=== PATIENT | male | born 1975 | race Caucasian/White ===

== ENCOUNTER 2018-12-09 22:08 | Inpatient (IN) | payer MEDICAID, SELFPAY ==
[2018-12-09] VITALS (7 sets, daily range): BP systolic 126–214; BP diastolic 67–107; PULSE 106–112; RESP 14–27; TEMP 35.8–36.8; O2SAT 79–99; BMI 31.2
--- NOTE | 2018-12-09 22:10 | ED.RN ---
RN CALLED FOR EKG, NO OLD EKGS IN MUSE
--- NOTE | 2018-12-09 22:14 | EKG12_ITS ---
Test Reason : SOB Blood Pressure : / mmHG Vent. Rate : 111 BPM Atrial Rate : 111 BPM P-R Int : 140 ms QRS Dur : 078 ms QT Int : 346 ms P-R-T Axes : 074 019 066 degrees QTc Int : 470 ms Sinus tachycardia Nonspecific ST abnormality Abnormal ECG Confirmed by LAURYN ZAMBRANO, FINN ([id number]), assignment desk editor DEL NAM ([id number]) on 12/12/2018 11:01:28 AM Referred By: Confirmed By:FINN COMBS MD
--- NOTE | 2018-12-09 22:16 | CT_ITS ---
STUDY: CTA CHEST REASON FOR EXAM: Male, 43 years old. Short of breath RADIATION DOSAGE (If Supplied By Facility): CTDIvol = ( 14.52 ) mGy, DLP = ( 489.13 ) mGycm TECHNIQUE: The examination was performed with the intravenous administration of Isovue 370 100ML IV. Post-processing of the angiographic images was performed, with multiplanar reformation and 3D reconstruction. Individualized dose optimization techniques were used for this CT. COMPARISON: None. FINDINGS: There are diffuse groundglass pulmonary infiltrates with scattered areas of mild subsegmental atelectasis. There is minimal consolidation. There is Mild prominence of the pulmonary vascularity. There is mild peribronchial wall thickening. There is significant respiratory motion artifact. Normal enhancement of the main pulmonary artery and right and left pulmonary arteries. Evaluation of the more distal peripheral vessels is limited due to significant respiratory motion. Normal thoracic aorta and visualized great vessels. There is distention of the stomach. There is no demonstrated aortic dissection. Normal heart and pericardium. Normal mediastinum. Normal hilar regions. . Normal pleura. Normal chest wall structures. Normal osseous structures. Normal visualized upper abdomen. There is a small hiatal hernia. CT/CTA Chest W/WO Contrast IMPRESSION: Significant bilateral groundglass pulmonary infiltrates and scattered areas of subsegmental atelectasis, mild consolidation likely diffuse pneumonia. Pulmonary venous congestion cannot be excluded No CTA evidence for pulmonary emboli within the main pulmonary arteries evaluation of the more distal pulmonary arteries is limited due to significant respiratory motion artifact Small hiatal hernia Distended stomach Electronically Signed: Kiran Cardozo, at 23:32 EDT Tel , Service support ,
--- NOTE | 2018-12-09 22:20 | RAD_ITS ---
STUDY: X-RAY CHEST REASON FOR EXAM: Male, 43 years old. Short of breath TECHNIQUE: Portable chest COMPARISON: None. FINDINGS: There are bilateral pulmonary infiltrates. There are bilateral nipple rings. There is no demonstrated pleural abnormality. Normal size heart. Normal mediastinum and natasha. Normal visualized pulmonary arteries. Normal visualized aortic arch and descending thoracic aorta. Normal visualized thoracic spine. Normal visualized ribs, clavicles, and shoulders. There is no demonstrated abnormality of the visualized soft tissue structures of the upper abdomen. RAD/Chest 1 View (Portable) IMPRESSION: Bilateral pulmonary infiltrates likely infectious/inflammatory, pneumonia less likely pulmonary venous congestion Bilateral nipple rings, Electronically Signed: Kiran Cardozo, at 22:51 EDT Tel , Service support ,
[2018-12-09] MEDS: Albuterol 2.5 MG/3 ML VIAL.NEB. INHALATION ×2 (22:31→22:34)
[2018-12-09] MEDS: Ipratropium/Albuterol Sulfate 3 ML AMPUL.NEB INHALATION (22:34)
[2018-12-09 22:51] LABS: Absolute Lymphocyte Count 7.93 X10^3/ul (0.83-4.51); Absolute Neutrophil Count 4.6 X10^3/uL (2.0-7.7); Basophil# 0.05 X10^3/uL; Basophil% 0.3 % (0-1); Eosinophil# 0.28 X10^3/uL; Eosinophils% 1.9 % (0-5); Hematocrit 44.1 % (40-54); Hemoglobin 13.7 g/dl (13.0-16.5); Lymphocyte # 7.93 X10^3/ul (4.0); Lymphocyte % 54.6 % (19-41); Mean Corp Hgb Conc 31.1 g/gl (32-36); Mean Corpuscular Hgb 31.4 pg (27.0-32.0); Mean Corpuscular Volume 101.1 fL (80-94); Mean Platelet Vol. 11.2 fl (6.2-12.0); Monocyte# 1.68 X10^3/uL; Monocyte% 11.6 % (0-10); Neutrophil # 4.57 X10^3/uL (2.7-7.7); Neutrophil % 31.5 % (47-70); Platelet Count 303 K/mm3 (150-450); RBC Distribution Width CV 14.4 % (11.6-14.6); RBC Distribution Width SD 52.8 fl (35.1-43.9); Red Blood Count 4.36 M/mm3 (4.6-6.2); White Blood Count 14.5 K/mm3 (4.4-11.0)
[2018-12-09] MEDS: MethylPREDNISolone 125 MG/2 ML Vial IV (22:51)
[2018-12-09 22:52] LABS: Anion Gap 12 (5-15); BUN 16 mg/dL (7-18); BUN/Creat Ratio 16.3 RATIO (10-20); Calcium,Total 8.9 mg/dL (8.5-10.1); Chloride 105 mmol/L (98-107); Creatinine, Serum 0.98 mg/dL (0.70-1.30); EST Glomerular Filtration Rate 88 mL/min (>60); Est Glom Filt Rate - Afr Amer 107 mL/min (>60); Estimated Creatinine Clearance 97.19 ml/min; Glucose 150 mg/dL (74-106); Potassium 3.4 mmol/L (3.5-5.1); Sodium Level 142 mmol/L (136-145)
--- NOTE | 2018-12-09 22:52 | ED.DCSUM_ITS ---
- ER Visit Summary Date of Service: 12/09/18 Chief Complaint: Shortness of breath History of Present Illness: The patient is a 43 M presenting with shortness of breath. Severe shortness of breath started tonight. He states he was helping his sister with getting groceries out of the car. He became acutely very short of breath. He was diaphoretic. He denies chest pain or chest pressure. He has had a cough and wheezing for several weeks. He recently quit smoking. He denies medical problems. He had a hernia surgery approximately 1 month ago. On arrival pulse ox was in the 70s. Physical Examination: Blood pressure 214/107, heart rate 106, respiratory rate 19. Patient is afebrile. Alert moderate distress. 96% on nonrebreather HEENT exam is unremarkable. Pharynx is normal. No tongue swelling or pharyngeal edema. Neck is supple. Lungs are wheezing and diminished bilaterally. Retractions Heart is regular and tachycardic Abdomen is soft nontender nondistended. Extremities are unremarkable. Skin is diaphoretic. No rash No focal neurologic deficit. Remainder of exam is unremarkable. Emergency Department Course and Treatment: EKG is sinus tachycardia rate of 111 with no acute ischemic changes. Patient was given Solu-Medrol, albuterol, Atrovent aerosols. He is feeling improved and was weaned to nasal cannula. Chest xray shows bilateral pulmonary infiltrates likely infectious/inflammatory, pneumonia less likely pulmonary venous congestion. CTA chest shows significant bilateral groundglass pulmonary infiltrates and scattered areas of subsegmental atelectasis, mild consolidation likely diffuse pneumonia. Pulmonary venous congestion cannot be excluded. No CTA evidence for pulmonary emboli within the main pulmonary arteries evaluation of the more distal pulmonary arteries is limited due to significant respiratory motion artifact. Blood cultures were sent. He was given IV fluids, Rocephin, Zithromax. CBC shows white count of 14.5. Chemistries unremarkable other than potassium 3.4, glucose 150. Troponin is negative. Lactic acid 6.9. Patient's repeat blood pressure is 131/62. He is feeling much improved on reevaluation. Will discuss with the hospitalist for admission. Disposition: Admission Impression: Septic shock, community acquired pneumonia This note was generated with [employer] dictation software. It may contain incorrect words, spelling, and punctuation that were not noted in review of the chart prior to signing ED Disposition - Plan for ED Patient: Referrals: Care Physician,No Primary [Primary Care Provider] -
[2018-12-09 22:53] LABS: Differential Indicated SCAN CRITERIA MET; POSITIVE COUNT NO; POSITIVE DIFFERENTIAL YES; POSITIVE MORPHOLOGY NO
[2018-12-09 23:09] LABS: Lactic Acid 6.9 mmol/L (0.4-2.0)
[2018-12-09 23:16] LABS: Differential Comment SCANNED
[2018-12-09] MEDS: 0.9% Normal Saline 1,000 ML 999 ML IV ×2 (23:52)
[2018-12-09 23:55] LABS: Blood Gas Specimen Type VEN; O2 Delivery Device Nasal Can; SITE OTHER; VBG BASE EXCESS 2 mmol/L (-1.0-3.5); VBG Bicarbonate 27 mmol/L (22-26); VBG Oxygen Content 28 mmol/L (23-33); VBG PO2 37 mmHg (25-40); VBG SO2 70 % (50-70); VBG pCO2 43.3 mmHg (41-51); VBG pH 7.41 (7.32-7.42)
[2018-12-10] VITALS (28 sets, daily range): BP systolic 105–153; BP diastolic 48–88; PULSE 72–99; RESP 12–22; TEMP 36.1–37.2; O2SAT 92–100; BMI 31.2
[2018-12-10] MEDS: Ceftriaxone 1 GM/50 ML BAG IV ×2 (00:22→08:27)
[2018-12-10 00:34] LABS: BNP,B-Type NATRIURETIC PEPTIDE 61.7 pg/mL (0-100)
--- NOTE | 2018-12-10 00:50 | HP.PCM_ITS ---
Problem List (1) Septic shock Status: Acute (2) Community acquired pneumonia Status: Acute History of Present Illness Date of Admission: 12/10/18 Chief Complaint: SHORTNESS OF BREATH The patient is a 43 year old M with a significant history of tobacco abuse who presented with sudden onset of shortness of breath while helping her sister to pack groceries. Her symptoms started on the same day of presentation. Reportedly his oxygen saturation was in the 70s at the emergency department and he was diaphoretic. Emergency department doctor reported an initial blood pressure of about 214/107 but this improved to 130/62. At emergency department patient received aerosols and was placed on a nonrebreather mask. Patient has been wheezing for some time. He has a productive cough; some voice changes and sore throat that he attributes to smoking. He denies any chills or fever. At emergency department patient was found to have leukocytosis with white count of 14.5. His lactic acid was severely elevated at 6.9. His BNP was not remarkable. His chest x-ray showed bilateral pulmonary infiltrates. CTPA showed significant bilateral groundglass pulmonary infiltrates and scattered areas of subsegmental atelectasis. There was no evidence of pulmonary emboli in the main pulmonary arteries. Importantly patient had hernia surgery 6 weeks ago but it was same day surgery. Past Medical History Medical History: Medical History (Last Updated 12/10/18 @ 06:34 by Kleber Jung MD) Tobacco abuse Z72.0 Allergies No Known Allergies Allergy (Verified 12/09/18 22:15) Home Medications: Ambulatory Orders Medication Instructions Recorded NK 12/09/18 Surgical History: herniorrhaphy Lives: With Family Smoking Status: Current every day smoker Tobacco Use: Cigars Alcohol: None - *Family History Maternal History Items: Cancer - Stomach cancer Paternal History Items: Heart Disease - His father had a pacemaker Review of Systems Constitutional: Denies: Chills, Fever, Weight Change HEENT: Denies: Head Aches, Sinus Congestion, Sinus Drainage Cardiovascular: Denies: Chest Pain, Palpitations Respiratory: Reports: Cough, Shortness of Breath, Sputum production, Wheezing Gastrointestinal: Denies: Abdominal Pain, Nausea, Vomiting Genitourinary: Denies: Dysuria Musculoskeletal: Denies: Joint Pain, Joint Tenderness Skin: Denies: Rash, Wounds Neurological: Denies: Numbness, Tingling, Focal weakness Psychiatric: Denies: Anxiety, Depression, Homicidal Ideations, Suicidal Ideations Hematologic/ Lymphatic: Denies: Easy Bruising, Easy Bleeding VTE Information - Inpt Only VTE Present on Admission: No VTE Pharm Prophylaxis ordered?: Yes Patient Problems: Active and Suspected Problems Septic shock (Acute) Community acquired pneumonia (Acute) - Physical Exam General: Alert, Oriented x3, Cooperative HEENT: Atraumatic, PERRLA, EOMI, Normocephalic Neck: Supple, No JVD, Negative Carotid Bruits Lungs: Rales - Left base, Wheezes - Localized at right upper lung field. Cardiovascular: Regular rate, No murmurs Abdomen: Bowel Sounds Present, Soft, Non Tender Extremities: No edema, Capillary Refill Less than 3 Seconds Skin: No rashes, No breakdown Musculoskeletal: No Tenderness to Palpation of Joints or Extremities Neurological: Neuro grossly intact Psych/Mental Status: Normal Affect, Appropriate Vital Signs Temp Pulse Resp BP Pulse Ox 98.4 F 96 16 131/62 H 98 12/10/18 00:04 12/10/18 00:04 12/10/18 00:04 12/10/18 00:04 12/10/18 00:04 Oxygen Flow Rate (L/min) 5 Oxygen Delivery Method Nasal Cannula Weight: 96.1 kg Body Mass Index (BMI) 31.2 Laboratory Tests Past 24 Hrs 12/09/18 12/09/18 12/09/18 22:13 22:13 22:20 WBC 14.5 H RBC 4.36 L Hgb 13.7 Hct 44.1 MCV 101.1 H MCH 31.4 MCHC 31.1 L RDW 14.4 RDW Differential 52.8 H Plt Count 303 MPV 11.2 Immature Gran % (Auto) 0.100 Neut % (Auto) 31.5 L Lymph % (Auto) 54.6 H [place] % (Auto) 11.6 H Eos % (Auto) 1.9 Baso % (Auto) 0.3 Absolute Neuts (auto) 4.6 Absolute Lymphs (auto) 7.93 H Total Counted Not Reportable Differential Comment SCANNED Specimen Type Sample Site VBG pH VBG pO2 VBG O2 Sat (Calc) VBG O2 Content VBG Base Excess POC Mix VBG pCO2 Pt Tmp O2 Delivery Device Liter Flow Blood Gas Notified Whom Sodium 142 Potassium 3.4 L Chloride 105 Carbon Dioxide 25.0 Anion Gap 12 BUN 16 Creatinine 0.98 Estim Creat Clear Calc 97.19 Est GFR (MDRD) Af Amer 107 Est GFR (MDRD) Non-Af 88 BUN/Creatinine Ratio 16.3 Glucose 150 H Lactic Acid 6.9 H* Calcium 8.9 Troponin I < 0.015 B-Natriuretic Peptide 12/09/18 12/10/18 23:49 00:00 WBC RBC Hgb Hct MCV MCH MCHC RDW RDW Differential Plt Count MPV Immature Gran % (Auto) Neut % (Auto) Lymph % (Auto) [place] % (Auto) Eos % (Auto) Baso % (Auto) Absolute Neuts (auto) Absolute Lymphs (auto) Total Counted Differential Comment Specimen Type SOSA Sample Site OTHER VBG pH 7.41 VBG pO2 37 VBG O2 Sat (Calc) 70 VBG O2 Content 28 VBG Base Excess 2 POC Mix VBG pCO2 Pt Tmp 43.3 O2 Delivery Device Nasal Can Liter Flow 3.0 Blood Gas Notified Whom ED MD Sodium Potassium Chloride Carbon Dioxide Anion Gap BUN Creatinine Estim Creat Clear Calc Est GFR (MDRD) Af Amer Est GFR (MDRD) Non-Af BUN/Creatinine Ratio Glucose Lactic Acid Calcium Troponin I B-Natriuretic Peptide 61.7 Assessment/Plan All Active Problems Septic shock (Acute) Community acquired pneumonia (Acute) The patient is a 43 year old M with a significant history of tobacco abuse and who recently had a hernia operation now with sudden onset of shortness of breath; tachycardia; tachypnea; lactic acidosis; leukocytosis and radiographic evidence of bilateral infiltrates consistent with septic shock secondary to likely committee acquired pneumonia. Septic shock Likely second to committee acquired pneumonia. Patient met SIRS criteria with leukocytosis of more than 12; tachypnea; heart rate of more than 90; and with radiographic evidence of bilateral pulmonary infiltrates with a normal BNP. At the emergency department blood cultures were taken and patient received normal saline Received normal saline bolus per sepsis protocol. Because of mild hypokalemia we will continue patient on maintenance normal saline with IV potassium supplementation. Trend lactic acid Because of the severity of her condition end of because of wheezing patient was previously admitted at emergency department. We will continue patient on prednisone. Received ceftriaxone 1 g in the emergency department. Also received azithromycin IV. Will give an additional dose of ceftriaxone 1 g and then 2 g ceftriaxone every 24 hours. Azithromycin IV continued Legionella urine antigen; and strep pneumoniae antigen ordered. Sputum culture ordered. Scheduled DuoNeb. Albuterol prn ordered. We will get a comprehensive respiratory pathogen panel. CBC and BMP Hypokalemia Mild with potassium of 3.4 on presentation Received IV normal saline with potassium supplementation. Trend BMP. Tobacco abuse Patient smokes cigar Counseled Nicotine patch ordered DVT prophylaxis Subcutaneous Lovenox Code Visit Inpatient E&M: 63253 Init Hosp L3
[2018-12-10] MEDS: 0.9% Normal Saline 1,000 ML 999 ML IV (02:09)
[2018-12-10 02:33] LABS: Reflex Lactate? Y
[2018-12-10 03:59] LABS: Lactic Acid 1.1 mmol/L (0.4-2.0)
[2018-12-10] MEDS: Potassium Chloride 40 MEQ in 0.9% Normal Saline 1,000 ML 75 MEQ IV (04:17)
[2018-12-10 04:40] LABS: Hematocrit 36.1 % (40-54); Hemoglobin 11.7 g/dl (13.0-16.5); Mean Corp Hgb Conc 32.4 g/gl (32-36); Mean Corpuscular Hgb 32.2 pg (27.0-32.0); Mean Corpuscular Volume 99.4 fL (80-94); Mean Platelet Vol. 11.4 fl (6.2-12.0); Platelet Count 270 K/mm3 (150-450); RBC Distribution Width CV 14.3 % (11.6-14.6); RBC Distribution Width SD 50.2 fl (35.1-43.9); Red Blood Count 3.63 M/mm3 (4.6-6.2); White Blood Count 12.4 K/mm3 (4.4-11.0)
[2018-12-10 04:52] LABS: Scan Indicated on CBC? Y/N NO
[2018-12-10 05:16] LABS: Anion Gap 9 (5-15); BUN 15 mg/dL (7-18); BUN/Creat Ratio 19.6 RATIO (10-20); Calcium,Total 7.3 mg/dL (8.5-10.1); Chloride 114 mmol/L (98-107); Creatinine, Serum 0.76 mg/dL (0.70-1.30); EST Glomerular Filtration Rate 118 mL/min (>60); Est Glom Filt Rate - Afr Amer 143 mL/min (>60); Estimated Creatinine Clearance 125.33 ml/min; Glucose 174 mg/dL (74-106); Sodium Level 144 mmol/L (136-145)
[2018-12-10] MEDS: Ipratropium/Albuterol Sulfate 3 ML AMPUL.NEB INHALATION ×4 (07:05→23:15)
--- NOTE | 2018-12-10 09:59 | PCM.PN.HOSP ---
Patient Problems: Active and Suspected Problems (Last Updated 12/10/18 @ 06:34 by Kleber Jung MD) Septic shock (Acute) Community acquired pneumonia (Acute) Subjective: Patient seen and examined. He was admitted with a complaint of sudden onset shortness of breath was found to be hypoxic in the 70s on admission. Lactic acid was also elevated at 6.[address] showed bilateral pulmonary infiltrates but no PE. He was also noted to have markedly elevated blood pressure of 214/107 on admission. White cell count was also elevated so he was admitted and managed for septic shock due to pneumonia. However, patient was not hypotensive and so he had SIRS criteria and elevated lactic acid which qualified him for severe sepsis. He is on IV ceftriaxone and azithromycin. Patient seen and examined this morning. He had no complaints and felt well. He still had a mild cough but had improved significantly. He denied any chest pain or palpitations, dizziness, abdominal pain, diarrhea vomiting. Review of systems otherwise negative. Labs and vitals reviewed. Vitals/I&O's: Vital Signs Temp Pulse Resp BP Pulse Ox 97.4 F L 86 18 105/52 L 100 12/10/18 05:00 12/10/18 07:05 12/10/18 07:05 12/10/18 06:00 12/10/18 07:05 Oxygen Flow Rate (L/min) 3 Oxygen Delivery Method Nasal Cannula Weight: 211 lb 6.773 oz Body Mass Index (BMI) 31.2 Intake and Output for Last 24 Hours 12/08/18 12/09/18 12/10/18 23:59 23:59 23:59 Intake Total 689 / 689 Output Total 950 / 950 Balance -261 / -261 General: Alert, Oriented x3, Cooperative, No apparent distress HEENT: Atraumatic, PERRLA, EOMI, Normocephalic Oral: Moist Mucosa Neck: Supple, No JVD, Negative Carotid Bruits Lungs: Clear to auscultation, Normal air movement, No rhonchi, No wheeze, No rales Cardiovascular: Regular rate, Regular Rhythm, Normal S1, Normal S2, No murmurs Abdomen: Bowel Sounds Present, Soft, Non Tender, Non-Distended, No Hepato-splenomegaly Extremities: No clubbing, No cyanosis, No edema, Capillary Refill Less than 3 Seconds Skin: No rashes, No breakdown Musculoskeletal: No Tenderness to Palpation of Joints or Extremities Lymphatic: No Cervical, Supraclavicular, or Inguinal Adenopathy Neurological: Cranial nerves II-XII grossly intact, Motor Exam 5/5 strength throughout Psych/Mental Status: Normal Affect, Appropriate, Alert and oriented to time, place, person, mood and affect Microbiology Past 72 Hours 12/10/18 08:09 Urine, Random Streptococcus pneumoniae Antigen (M - Final 12/10/18 08:09 Urine, Clean Catch Legionella Antigen - Final Laboratory Results 12/09/18 22:13: WBC 14.5 H, RBC 4.36 L, Hgb 13.7, Hct 44.1, MCV 101.1 H, MCH 31.4, MCHC 31.1 L, RDW 14.4, RDW Differential 52.8 H, Plt Count 303, MPV 11.2, Immature Gran % (Auto) 0.100, Neut % (Auto) 31.5 L, Lymph % (Auto) 54.6 H, [place] % (Auto) 11.6 H, Eos % (Auto) 1.9, Baso % (Auto) 0.3, Absolute Neuts (auto) 4.6, Absolute Lymphs (auto) 7.93 H, Total Counted Not Reportable, Differential Comment SCANNED 12/09/18 22:13: Sodium 142, Potassium 3.4 L, Chloride 105, Carbon Dioxide 25.0, Anion Gap 12, BUN 16, Creatinine 0.98, Estim Creat Clear Calc 97.19, Est GFR (MDRD) Af Amer 107, Est GFR (MDRD) Non-Af 88, BUN/Creatinine Ratio 16.3, Glucose 150 H, Calcium 8.9, Troponin I < 0.015 12/09/18 22:20: Lactic Acid 6.9 H* 12/09/18 23:49: Specimen Type SOSA, Sample Site OTHER, VBG pH 7.41, VBG pO2 37, VBG O2 Sat (Calc) 70, VBG O2 Content 28, VBG Base Excess 2, POC Mix VBG pCO2 Pt Tmp 43.3, O2 Delivery Device Nasal Can, Liter Flow 3.0, Blood Gas Notified Whom ED 12/10/18 00:00: B-Natriuretic Peptide 61.7 12/10/18 03:20: Lactic Acid 1.1 12/10/18 03:40: WBC 12.4 H, RBC 3.63 L, Hgb 11.7 L, Hct 36.1 L, MCV 99.4 H, MCH 32.2 H, MCHC 32.4, RDW 14.3, RDW Differential 50.2 H, Plt Count 270, MPV 11.4 12/10/18 03:40: Sodium 144, Potassium 4.0, Chloride 114 H, Carbon Dioxide 21.0, Anion Gap 9, BUN 15, Creatinine 0.76, Estim Creat Clear Calc 125.33, Est GFR (MDRD) Af Amer 143, Est GFR (MDRD) Non-Af 118, BUN/Creatinine Ratio 19.6, Glucose 174 H, Calcium 7.3 L Diagnostic Data Chest CTA 12/09/18 22:16 IMPRESSION: Significant bilateral groundglass pulmonary infiltrates and scattered areas of subsegmental atelectasis, mild consolidation likely diffuse pneumonia. Pulmonary venous congestion cannot be excluded No CTA evidence for pulmonary emboli within the main pulmonary arteries evaluation of the more distal pulmonary arteries is limited due to significant respiratory motion artifact Small hiatal hernia Distended stomach Electronically Signed: Kiran Cardozo, at 23:32 EDT Tel , Service support , Chest X-Ray 12/09/18 22:20 IMPRESSION: Bilateral pulmonary infiltrates likely infectious/inflammatory, pneumonia less likely pulmonary venous congestion Bilateral nipple rings, Electronically Signed: Kiran Cardozo at 22:51 EDT Tel , Service support , Current Medications Acetaminophen (Tylenol) 650 mg PO Q4H PRN PRN PRN Reason: Mild-Moderate Pain/Headache Albuterol Sulfate (Ventolin Aerosols) 2.5 mg INHALATION Q2H PRN PRN PRN Reason: SHORTNESS OF BREATH Albuterol/Ipratropium (Duoneb) 3 ml INHALATION Q4H.RT JOSE MARTIN Last Admin: 12/10/18 07:05 Dose: 3 ml Enoxaparin Sodium (Lovenox) 40 mg SC DAILY@1000 JOSE MARTIN Guaifenesin (Mucinex) 1,200 mg PO BID [facility] Azithromycin 500 mg/ Dextrose 255 mls @ 250 mls/hr IV Q24@2200 JOSE MARTIN Potassium Chloride 40 meq/ (Sodium Chloride) 1,020 mls @ 75 mls/hr IV .[id number] [facility] Stop: 12/10/18 16:50 Last Admin: 12/10/18 04:17 Dose: 75 mls/hr Sodium Chloride () 250 mls @ 15 mls/hr IV .[id number] PRN PRN Reason: SALINE FLUSH Ceftriaxone Sodium 2 gm/ (Sodium Chloride) 50 mls @ 100 mls/hr IV Q24 JOSE MARTIN Magnesium Hydroxide (Milk Of Magnesia) 30 ml PO DAILY PRN PRN PRN Reason: Constipation Nicotine (Nicoderm Cq (Pbkc)) 21 mg TRANSDERM. DAILY JOSE MARTIN Ondansetron HCl (Zofran) 4 mg IV Q8H PRN PRN PRN Reason: Nausea Prednisone () 40 mg PO DAILY@0800 JOSE MARTIN Sodium Chloride () 5 - 15 ml IV UD PRN PRN Reason: SALINE FLUSH Medical Necessity - Tobacco Use Smoking Status: Current every day smoker Tobacco Use: Cigars Assessment/Plan All Active Problems (Last Updated 12/10/18 @ 06:34 by Kleber Jung MD) Septic shock (Acute) Community acquired pneumonia (Acute) 1. Severe sepsis due to community acquired pneumonia Has no complaints today. Cough is much better. On IV ceftriaxone and azithromycin. White cell count is trended down slightly to around 12. Lactic acidosis has resolved and lactic acid came down to 1.1. Chest x-ray does show bilateral infiltrates and this was confirmed by CT chest. On IV ceftriaxone and azithromycin. Urine for strep and Legionella were negative. Blood cultures and respiratory panel is pending. 2. Acute hypoxic respiratory failure due to community acquired pneumonia. Was markedly hypoxic with saturation in the 70s on admission. Was also tachycardic and tachypneic on admission. Is now much better. Saturating at 100% on 3 L of oxygen. Breathing treatments with duo nebs. To titrate oxygen to maintain saturation more than 90%. On prednisone p.o. 3. Hypokalemia: Potassium was 3.4 on admission. This is resolved with replacement and potassium is 4 today. 4. Nicotine dependence: Counseled on quitting. On nicotine patch. DVT prophylaxis: lovenox Code Visit Inpatient E&M: 59381 [facility] Hosp L3
--- NOTE | 2018-12-10 10:04 | PN_ITS ---
Patient Problems: Active and Suspected Problems (Last Updated 12/10/18 @ 06:34 by Kleber Jung MD) Septic shock (Acute) Community acquired pneumonia (Acute) Subjective: Patient seen and examined. He was admitted with a complaint of sudden onset shortness of breath was found to be hypoxic in the 70s on admission. Lactic acid was also elevated at 6.[address] showed bilateral pulmonary infiltrates but no PE. He was also noted to have markedly elevated blood pressure of 214/107 on admission. White cell count was also elevated so he was admitted and managed for septic shock due to pneumonia. However, patient was not hypotensive and so he had SIRS criteria and elevated lactic acid which qualified him for severe sepsis. He is on IV ceftriaxone and azithromycin. Patient seen and examined this morning. He had no complaints and felt well. He still had a mild cough but had improved significantly. He denied any chest pain or palpitations, dizziness, abdominal pain, diarrhea vomiting. Review of systems otherwise negative. Labs and vitals reviewed. Vitals/I&O's: Vital Signs Temp Pulse Resp BP Pulse Ox 97.4 F L 86 18 105/52 L 100 12/10/18 05:00 12/10/18 07:05 12/10/18 07:05 12/10/18 06:00 12/10/18 07:05 Oxygen Flow Rate (L/min) 3 Oxygen Delivery Method Nasal Cannula Weight: 211 lb 6.773 oz Body Mass Index (BMI) 31.2 Intake and Output for Last 24 Hours 12/08/18 12/09/18 12/10/18 23:59 23:59 23:59 Intake Total 689 / 689 Output Total 950 / 950 Balance -261 / -261 General: Alert, Oriented x3, Cooperative, No apparent distress HEENT: Atraumatic, PERRLA, EOMI, Normocephalic Oral: Moist Mucosa Neck: Supple, No JVD, Negative Carotid Bruits Lungs: Clear to auscultation, Normal air movement, No rhonchi, No wheeze, No rales Cardiovascular: Regular rate, Regular Rhythm, Normal S1, Normal S2, No murmurs Abdomen: Bowel Sounds Present, Soft, Non Tender, Non-Distended, No Hepato- splenomegaly Extremities: No clubbing, No cyanosis, No edema, Capillary Refill Less than 3 Seconds Skin: No rashes, No breakdown Musculoskeletal: No Tenderness to Palpation of Joints or Extremities Lymphatic: No Cervical, Supraclavicular, or Inguinal Adenopathy Neurological: Cranial nerves II-XII grossly intact, Motor Exam 5/5 strength throughout Psych/Mental Status: Normal Affect, Appropriate, Alert and oriented to time, place, person, mood and affect Microbiology Past 72 Hours 12/10/18 08:09 Urine, Random Streptococcus pneumoniae Antigen (M - Final 12/10/18 08:09 Urine, Clean Catch Legionella Antigen - Final Laboratory Results 12/09/18 22:13: WBC 14.5 H, RBC 4.36 L, Hgb 13.7, Hct 44.1, MCV 101.1 H, MCH 31.4, MCHC 31.1 L, RDW 14.4, RDW Differential 52.8 H, Plt Count 303, MPV 11.2, Immature Gran % (Auto) 0.100, Neut % (Auto) 31.5 L, Lymph % (Auto) 54.6 H, [place] % (Auto) 11.6 H, Eos % (Auto) 1.9, Baso % (Auto) 0.3, Absolute Neuts (auto) 4.6, Absolute Lymphs (auto) 7.93 H, Total Counted Not Reportable, Differential Comment SCANNED 12/09/18 22:13: Sodium 142, Potassium 3.4 L, Chloride 105, Carbon Dioxide 25.0, Anion Gap 12, BUN 16, Creatinine 0.98, Estim Creat Clear Calc 97.19, Est GFR (MDRD) Af Amer 107, Est GFR (MDRD) Non-Af 88, BUN/Creatinine Ratio 16.3, Glucose 150 H, Calcium 8.9, Troponin I < 0.015 12/09/18 22:20: Lactic Acid 6.9 H* 12/09/18 23:49: Specimen Type SOSA, Sample Site OTHER, VBG pH 7.41, VBG pO2 37, VBG O2 Sat (Calc) 70, VBG O2 Content 28, VBG Base Excess 2, POC Mix VBG pCO2 Pt Tmp 43.3, O2 Delivery Device Nasal Can, Liter Flow 3.0, Blood Gas Notified Whom ED 12/10/18 00:00: B-Natriuretic Peptide 61.7 12/10/18 03:20: Lactic Acid 1.1 12/10/18 03:40: WBC 12.4 H, RBC 3.63 L, Hgb 11.7 L, Hct 36.1 L, MCV 99.4 H, MCH 32.2 H, MCHC 32.4, RDW 14.3, RDW Differential 50.2 H, Plt Count 270, MPV 11.4 12/10/18 03:40: Sodium 144, Potassium 4.0, Chloride 114 H, Carbon Dioxide 21.0, Anion Gap 9, BUN 15, Creatinine 0.76, Estim Creat Clear Calc 125.33, Est GFR (MDRD) Af Amer 143, Est GFR (MDRD) Non-Af 118, BUN/Creatinine Ratio 19.6, Glucose 174 H, Calcium 7.3 L Diagnostic Data Chest CTA 12/09/18 22:16 IMPRESSION: Significant bilateral groundglass pulmonary infiltrates and scattered areas of subsegmental atelectasis, mild consolidation likely diffuse pneumonia. Pulmonary venous congestion cannot be excluded No CTA evidence for pulmonary emboli within the main pulmonary arteries evaluation of the more distal pulmonary arteries is limited due to significant respiratory motion artifact Small hiatal hernia Distended stomach Electronically Signed: Kiran Cardozo, at 23:32 EDT Tel , Service support , Chest X-Ray 12/09/18 22:20 IMPRESSION: Bilateral pulmonary infiltrates likely infectious/inflammatory, pneumonia less likely pulmonary venous congestion Bilateral nipple rings, Electronically Signed: Kiran Cardozo at 22:51 EDT Tel , Service support , Current Medications Acetaminophen (Tylenol) 650 mg PO Q4H PRN PRN PRN Reason: Mild-Moderate Pain/Headache Albuterol Sulfate (Ventolin Aerosols) 2.5 mg INHALATION Q2H PRN PRN PRN Reason: SHORTNESS OF BREATH Albuterol/Ipratropium (Duoneb) 3 ml INHALATION Q4H.RT JOSE MARTIN Last Admin: 12/10/18 07:05 Dose: 3 ml Enoxaparin Sodium (Lovenox) 40 mg SC DAILY@1000 JOSE MARTIN Guaifenesin (Mucinex) 1,200 mg PO BID [facility] Azithromycin 500 mg/ Dextrose 255 mls @ 250 mls/hr IV Q24@2200 JOSE MARTIN Potassium Chloride 40 meq/ (Sodium Chloride) 1,020 mls @ 75 mls/hr IV .[id number] JOSE MARTIN Stop: 12/10/18 16:50 Last Admin: 12/10/18 04:17 Dose: 75 mls/hr Sodium Chloride () 250 mls @ 15 mls/hr IV .[id number] PRN PRN Reason: SALINE FLUSH Ceftriaxone Sodium 2 gm/ (Sodium Chloride) 50 mls @ 100 mls/hr IV Q24 JOSE MARTIN Magnesium Hydroxide (Milk Of Magnesia) 30 ml PO DAILY PRN PRN PRN Reason: Constipation Nicotine (Nicoderm Cq (Pbkc)) 21 mg TRANSDERM. DAILY JOSE MARTIN Ondansetron HCl (Zofran) 4 mg IV Q8H PRN PRN PRN Reason: Nausea Prednisone () 40 mg PO DAILY@0800 JOSE MARTIN Sodium Chloride () 5 - 15 ml IV UD PRN PRN Reason: SALINE FLUSH Medical Necessity - Tobacco Use Smoking Status: Current every day smoker Tobacco Use: Cigars Assessment/Plan All Active Problems (Last Updated 12/10/18 @ 06:34 by Kleber Jung MD) Septic shock (Acute) Community acquired pneumonia (Acute) 1. Severe sepsis due to community acquired pneumonia * Has no complaints today. Cough is much better. * On IV ceftriaxone and azithromycin. White cell count is trended down slightly to around 12. Lactic acidosis has resolved and lactic acid came down to 1.1. * Chest x-ray does show bilateral infiltrates and this was confirmed by CT chest. * On IV ceftriaxone and azithromycin. * Urine for strep and Legionella were negative. Blood cultures and respiratory panel is pending. * 2. Acute hypoxic respiratory failure due to community acquired pneumonia. * Was markedly hypoxic with saturation in the 70s on admission. * Was also tachycardic and tachypneic on admission. * Is now much better. * Saturating at 100% on 3 L of oxygen. * Breathing treatments with duo nebs. * To titrate oxygen to maintain saturation more than 90%. * On prednisone p.o. 3. Hypokalemia: Potassium was 3.4 on admission. This is resolved with replacement and potassium is 4 today. 4. Nicotine dependence: Counseled on quitting. On nicotine patch. DVT prophylaxis: lovenox * Code Visit Inpatient E&M: 36050 Subs Hosp L3
[2018-12-10] MEDS: predniSONE 20 MG Tablet 40 MG PO (12:08)
[2018-12-10] MEDS: guaiFENesin 1,200 MG Tablet 1200 MG PO ×2 (12:08→22:42)
--- NOTE | 2018-12-10 16:00 | CASEMGMT ---
RN CM Assessment Presentation: Influenza A, Sepsis/Pneumonia Intro role of CM to patient in room. Pt is awake, alert and able to participate in assessment. Demographics verified. PCP: none. List given and discussed benefits of establishing with PCP. Brochure for [facility] also given to pt. [facility]acy: [facility]. Entered in chart. LNOK: Sister, Danica Reyes Living Arrangements: pt lives with his sister. DME: none HHS: none Transportation: drives [place] Disposition: Home
[2018-12-10] MEDS: Oseltamivir Phosphate 75 MG Capsule PO ×2 (17:55→22:47)
[2018-12-10] MEDS: 0.9% NaCl Peripheral Flush Adult/Peds IV (22:42)
[2018-12-11 03:08] VITALS: PULSE 86
[2018-12-11 04:38] VITALS: BP 122/62; PULSE 87; RESP 16; TEMP 35.8; O2SAT 96
[2018-12-11 06:55] LABS: Absolute Lymphocyte Count 2.49 X10^3/ul (0.83-4.51); Absolute Neutrophil Count 9.5 X10^3/uL (2.0-7.7); Basophil# 0.01 X10^3/uL; Basophil% 0.1 % (0-1); Eosinophil# 0.01 X10^3/uL; Eosinophils% 0.1 % (0-5); Hematocrit 33.8 % (40-54); Hemoglobin 10.8 g/dl (13.0-16.5); Lymphocyte # 2.49 X10^3/ul (4.0); Lymphocyte % 19.3 % (19-41); Mean Corpuscular Volume 100.3 fL (80-94); Mean Platelet Vol. 10.8 fl (6.2-12.0); Monocyte# 0.82 X10^3/uL; Monocyte% 6.4 % (0-10); Neutrophil # 9.51 X10^3/uL (2.7-7.7); Neutrophil % 73.9 % (47-70); Platelet Count 274 K/mm3 (150-450); RBC Distribution Width CV 14.7 % (11.6-14.6); RBC Distribution Width SD 51.6 fl (35.1-43.9); Red Blood Count 3.37 M/mm3 (4.6-6.2); White Blood Count 12.9 K/mm3 (4.4-11.0)
[2018-12-11 06:57] LABS: POSITIVE COUNT NO; POSITIVE DIFFERENTIAL NO; POSITIVE MORPHOLOGY NO
[2018-12-11 07:04] VITALS: PULSE 75
[2018-12-11 07:13] LABS: Anion Gap 9 (5-15); BUN 14 mg/dL (7-18); BUN/Creat Ratio 24.7 RATIO (10-20); Calcium,Total 7.8 mg/dL (8.5-10.1); Chloride 114 mmol/L (98-107); Creatinine, Serum 0.57 mg/dL (0.70-1.30); EST Glomerular Filtration Rate 167 mL/min (>60); Est Glom Filt Rate - Afr Amer 202 mL/min (>60); Glucose 112 mg/dL (74-106); Potassium 3.4 mmol/L (3.5-5.1); Sodium Level 147 mmol/L (136-145)
[2018-12-11 08:05] VITALS: PULSE 90; RESP 16; O2SAT 96
[2018-12-11] MEDS: Ipratropium/Albuterol Sulfate 3 ML AMPUL.NEB INHALATION ×2 (08:05→11:24)
[2018-12-11 08:50] VITALS: BP 132/70; PULSE 89; RESP 16; TEMP 36.6; O2SAT 99
[2018-12-11] MEDS: predniSONE 20 MG Tablet 40 MG PO (08:59)
[2018-12-11] MEDS: guaiFENesin 1,200 MG Tablet 1200 MG PO (09:00)
[2018-12-11] MEDS: Oseltamivir Phosphate 75 MG Capsule PO (09:00)
[2018-12-11 11:24] VITALS: PULSE 89; RESP 16
--- NOTE | 2018-12-11 11:30 | DCINST_ITS ---
- Discharge Diagnoses Current Active Problems: Current Active and Chronic Problems (Last Updated 12/10/18 @ 06:34 by Kleber Jung MD) Septic shock (Acute) Community acquired pneumonia (Acute) You will use the following diet at home:: Cardiac Your food should be the consistency of: Regular Your liquids should be the consistency of: Regular/Thin Discharge Activity: Return to Normal Activity Weight Bearing Status: Weight bearing as tolerated Call your doctor if you observe: Shortness of breath, Swelling in the ankles Instructions: Influenza Allergies/Adverse Reactions: Allergies No Known Allergies Allergy (Verified 12/09/18 22:15) Medications to take at Discharge Albuterol IH (ProAir) [Proair Hfa] 1 - 2 puff INHALATION Q4H PRN PRN #1 inhaler 12/11/18 Guaifenesin [Mucinex] 1,200 mg PO BID #30 tablet 12/11/18 Oseltamivir Phosphate [Tamiflu] 75 mg PO BID #6 capsule 12/11/18 predniSONE tablet 40 mg PO DAILY@0800 5 Days #10 tablet 12/11/18 The following prescriptions were given: Albuterol IH (ProAir) [Proair Hfa] 1 - 2 puff INHALATION Q4H PRN PRN #1 inhaler PRN Reason: Sob &/Or Wheezing predniSONE tablet 40 mg PO DAILY@0800 5 Days #10 tablet Guaifenesin [Mucinex] 1,200 mg PO BID #30 tablet Oseltamivir Phosphate [Tamiflu] 75 mg PO BID #6 capsule Primary Care Physician: Care Physician,No Primary [Primary Care Provider] - Test Results: Test results from this visit will be discussed in further detail at your follow- up appointment, if applicable. Please Follow Up With: Bhavesh Chambers MD When: one week to establish PCP relationship Proposed Discharge Date: 12/11/18
--- NOTE | 2018-12-11 11:30 | PCM.DC.SUM ---
Discharge Date and Diagnosis Date of Admission: 12/10/18 Date of Discharge: 12/11/18 - Primary Discharge Diagnosis Active and Suspected Problems (Last Updated 12/10/18 @ 06:34 by Kleber Jung MD) Influenza infection Hospital Course and Treatment Imaging Results: Diagnostic Data Chest CTA 12/09/18 22:16 IMPRESSION: Significant bilateral groundglass pulmonary infiltrates and scattered areas of subsegmental atelectasis, mild consolidation likely diffuse pneumonia. Pulmonary venous congestion cannot be excluded No CTA evidence for pulmonary emboli within the main pulmonary arteries evaluation of the more distal pulmonary arteries is limited due to significant respiratory motion artifact Small hiatal hernia Distended stomach Electronically Signed: Kiran Cardozo, at 23:32 EDT Tel , Service support , Chest X-Ray 12/09/18 22:20 IMPRESSION: Bilateral pulmonary infiltrates likely infectious/inflammatory, pneumonia less likely pulmonary venous congestion Bilateral nipple rings, Electronically Signed: Kiran Cardozo, at 22:51 EDT Tel , Service support , Operations: None Procedures: None Summary of Care Provided: The patient is a 43 year old M with past medical history significant for tobacco abuse. He was admitted with a complaint of sudden onset shortness of breath while he was helping set up for groceries. His saturation was in the 70s in the ED he had assisted diaphoresis and he had markedly elevated blood pressure of 214/107 time of arrival in the ED but this improved subsequently to about 10/30/1961. He had also had a productive cough and some wheezing but denied any fever or chills. He had mild leukocytosis of 14.5 and his lactic acid was 6.9. Chest x-ray showed bilateral pulmonary infiltrates and CT angiogram done showed bilateral groundglass infiltrates and scattered areas of subsegmental atelectasis. There is no evidence of PE. He was admitted initially managed for severe sepsis due to possible community-acquired pneumonia. However his influenza screen came back negative and lactic acid trended down to 1.11 hydration. He had no fever or chills during the admission and pneumonia was ruled out as patient remained stable and did not have any productive cough. He was started on Tamiflu for influenza infection. Patient remained stable and remained on room air throughout admission. His blood pressure control also improved significantly and he was on in the 120 systolic. He remained stable and was discharged home on 12/11/2018 with a prescription for Tamiflu. He is to follow-up with his primary care doctor in 1 week. She has had no PCP and so was referred to Dr. Char Chambers, to establish a PCP relationship. Patient seen and examined prior to discharge. He had no complaints and felt well. Review of systems otherwise negative. Labs and vitals reviewed. Home medication reviewed and reconciled. o/e: Vital Signs Height 5 ft 9 in Weight: 211 lb 3.245 oz Weight in Pounds 211.2 lbs Pulse Ox 99 Temperature 98 F Pulse Rate 89 Respiratory Rate 16 Blood Pressure [BP] 114/70 Blood Pressure 132/70 Blood Pressure Position [BP] Semi-Fowlers Blood Pressure Position Sitting General: Alert, Oriented x3, Cooperative, No apparent distress HEENT: Atraumatic, PERRLA, EOMI, Normocephalic Oral: Moist Mucosa Neck: Supple, No JVD, Negative Carotid Bruits Lungs: Clear to auscultation, Normal air movement, No rhonchi, No wheeze, No rales Cardiovascular: Regular rate, Regular Rhythm, Normal S1, Normal S2, No murmurs Abdomen: Bowel Sounds Present, Soft, Non Tender, Non-Distended, No Hepato-splenomegaly Extremities: No clubbing, No cyanosis, No edema, Capillary Refill Less than 3 Seconds Skin: No rashes, No breakdown Musculoskeletal: No Tenderness to Palpation of Joints or Extremities Lymphatic: No Cervical, Supraclavicular, or Inguinal Adenopathy Neurological: Cranial nerves II-XII grossly intact, Motor Exam 5/5 strength throughout Psych/Mental Status: Normal Affect, Appropriate, Alert and oriented to time, place, person, mood and affect Plan as above. - Physical Exam Vital Signs Temp Pulse Resp BP Pulse Ox 98 F 89 16 132/70 H 99 12/11/18 08:50 12/11/18 08:50 12/11/18 08:50 12/11/18 08:50 12/11/18 08:50 Oxygen Flow Rate (L/min) 3 Oxygen Delivery Method Room Air Weight: 211 lb 3.245 oz Body Mass Index (BMI) 31.2 Intake and Output for Last 24 Hours 12/09/18 12/10/18 12/11/18 23:59 23:59 23:59 Intake Total 2071 / 2 860 / 860 Output Total 3250 / 3250 Balance -1178 / -1178 860 / 860 Microbiology Past 72 Hours 12/10/18 07:05 Respiratory Panel (PCR) - Final Mucosa - Nasopharyngeal Influenza A (Subtype H3) 12/10/18 08:09 Streptococcus pneumoniae Antigen (M - Final Urine, Random 12/10/18 08:09 Legionella Antigen - Final Urine, Clean Catch Laboratory Tests Past 24 Hrs 12/11/18 12/11/18 06:25 06:25 WBC 12.9 H RBC 3.37 L Hgb 10.8 L Hct 33.8 L MCV 100.3 H MCH 32.0 MCHC 32.0 RDW 14.7 H RDW Differential 51.6 H Plt Count 274 MPV 10.8 Immature Gran % (Auto) 0.200 Neut % (Auto) 73.9 H Lymph % (Auto) 19.3 [place] % (Auto) 6.4 Eos % (Auto) 0.1 Baso % (Auto) 0.1 Absolute Neuts (auto) 9.5 H Absolute Lymphs (auto) 2.49 Total Counted Not Reportable Sodium 147 H Potassium 3.4 L Chloride 114 H Carbon Dioxide 24.0 Anion Gap 9 BUN 14 Creatinine 0.57 L Estim Creat Clear Calc 167.10 Est GFR (MDRD) Af Amer 202 Est GFR (MDRD) Non-Af 167 BUN/Creatinine Ratio 24.7 H Glucose 112 H Calcium 7.8 L Discharge Diet: Low fat/ Low Cholesterol Discharge Activity: Return to Normal Activity Weight Bearing Status: Weight bearing as tolerated Call your doctor if you observe: Shortness of breath, Swelling in the ankles Home Medications: Medications to take at Discharge Albuterol IH (ProAir) [Proair Hfa] 1 - 2 puff INHALATION Q4H PRN PRN #1 inhaler 12/11/18 Guaifenesin [Mucinex] 1,200 mg PO BID #30 tablet 12/11/18 Oseltamivir Phosphate [Tamiflu] 75 mg PO BID #6 capsule 12/11/18 predniSONE tablet 40 mg PO DAILY@0800 5 Days #10 tablet 12/11/18 Following Prescrptions Were Given to Patient: Albuterol IH (ProAir) [Proair Hfa] 1 - 2 puff INHALATION Q4H PRN PRN #1 inhaler PRN Reason: Sob &/Or Wheezing predniSONE tablet 40 mg PO DAILY@0800 5 Days #10 tablet Guaifenesin [Mucinex] 1,200 mg PO BID #30 tablet Oseltamivir Phosphate [Tamiflu] 75 mg PO BID #6 capsule Primary Care Physician: Care Physician,No Primary [Primary Care Provider] - Please Follow Up With: Bhavesh Chambers MD When: one week to establish PCP relationship Patient Instructions: Influenza Disposition: Home Minutes spent on discharge:: 35 Patient Condition:: Stable Medical Necessity - Tobacco Use Smoking Status: Current every day smoker Tobacco Use: Cigars Meaningful Use Info Meaningful Use Diagnoses (Choose all that apply): None applicable Code Visit Inpatient E&M: 58165 Disch Hosp
== END 2018-12-11 12:36 | disposition home or self-care (01) | DRG 113 ==
LOC: ED 22:45 → ICU 12-10 01:35 → PCU 12-10 18:17
PROVIDERS: Admitting Provider Hospitalist; Emergency Provider Emergency Medicine; Visit Provider Student in an Organized Health Care Education/Training Program
DX: J10.1 Influenza due to other identified influenza virus with other respiratory manifestations (principal); E87.6 Hypokalemia; J96.01 Acute respiratory failure with hypoxia; F17.290 Nicotine dependence, other tobacco product, uncomplicated
CPT/HCPCS: 36415; 71045; 71275; 80048; 82803; 83605; 83880; 84484; 85025; 85027; 87040; 87449; 87633; 93005; 94640; 94668; 99284; 99406; J7030; J7040; Q9967; A4216; J0696

== ENCOUNTER → 2018-12-17 09:54 | Outpatient (CLI) | payer MEDICAID, SELFPAY ==
[2018-12-17 09:23] VITALS: BMI 31.2
[2018-12-17 12:39] LABS: Absolute Lymphocyte Count 5.08 X10^3/ul (0.83-4.51); Absolute Neutrophil Count 7.3 X10^3/uL (2.0-7.7); Basophil# 0.04 X10^3/uL; Basophil% 0.3 % (0-1); Eosinophil# 0.12 X10^3/uL; Eosinophils% 0.9 % (0-5); Hematocrit 44.8 % (40-54); Hemoglobin 14.2 g/dl (13.0-16.5); Lymphocyte # 5.08 X10^3/ul (4.0); Lymphocyte % 37.4 % (19-41); Mean Corp Hgb Conc 31.7 g/gl (32-36); Mean Corpuscular Hgb 31.3 pg (27.0-32.0); Mean Corpuscular Volume 98.7 fL (80-94); Mean Platelet Vol. 10.6 fl (6.2-12.0); Monocyte# 0.95 X10^3/uL; Neutrophil # 7.29 X10^3/uL (2.7-7.7); Neutrophil % 53.7 % (47-70); Platelet Count 422 K/mm3 (150-450); RBC Distribution Width SD 54.1 fl (35.1-43.9); Red Blood Count 4.54 M/mm3 (4.6-6.2); White Blood Count 13.6 K/mm3 (4.4-11.0)
[2018-12-17 12:47] LABS: Differential Indicated SCAN CRITERIA MET; POSITIVE COUNT NO; POSITIVE DIFFERENTIAL YES; POSITIVE MORPHOLOGY NO
[2018-12-17 12:50] LABS: Hemoglobin A1c 5.8 % (4.2-6.3)
[2018-12-17 13:06] LABS: Differential Comment SCANNED
[2018-12-17 13:27] LABS: ALB/GLOB Ratio 0.9 RATIO (0.9-2.4); AST(SGOT) 18 U/L (15-37); Alanine Aminotransfer ALT/SGPT 37 U/L (16-61); Albumin, Serum 3.6 g/dL (3.2-5.0); Alkaline Phosphatase 83 U/L (45-117); Anion Gap 6 (5-15); BUN 27 mg/dL (7-18); BUN/Creat Ratio 36.6 RATIO (10-20); Calcium,Total 8.6 mg/dL (8.5-10.1); Chloride 106 mmol/L (98-107); Creatinine, Serum 0.74 mg/dL (0.70-1.30); EST Glomerular Filtration Rate 123 mL/min (>60); Est Glom Filt Rate - Afr Amer 149 mL/min (>60); Globulin 3.8 g/dL (2.2-4.2); Glucose 98 mg/dL (74-106); Potassium 4.1 mmol/L (3.5-5.1); Protein, Total 7.4 g/dL (6.4-8.2); Sodium Level 139 mmol/L (136-145)
== END ==
PROVIDERS: PCP Internal Medicine; Visit Provider Nurse Practitioner Family
DX: J11.1 Influenza due to unidentified influenza virus with other respiratory manifestations (principal); R73.9 Hyperglycemia, unspecified; R89.9 Unspecified abnormal finding in specimens from other organs, systems and tissues
CPT/HCPCS: 36415; 80053; 83036; 85025

== ENCOUNTER 2022-07-24 18:11 | Emergency (ER) | payer SELFPAY ==
[2022-07-24 18:13] VITALS: BP 136/99; PULSE 100; RESP 18; TEMP 37.1; O2SAT 97; BMI 29.9
[2022-07-24 19:52] VITALS: RESP 17; O2SAT 98
[2022-07-24 19:55] VITALS: BP 134/81; PULSE 73; RESP 15; O2SAT 98
[2022-07-24 19:57] LABS: Absolute Lymphocyte Count 2.38 X10^3/uL (0.83-4.51); Absolute Neutrophil Count 3.8 X10^3/uL (2.0-7.7); Basophil# 0.03 X10^3/uL; Basophil% 0.4 % (0-1); Eosinophil# 0.07 X10^3/uL; Hematocrit 40.7 % (40-54); Hemoglobin 13.8 g/dL (13.0-16.5); Lymphocyte # 2.38 X10^3/ul (0.83-4.51); Lymphocyte % 33.1 % (19-41); Mean Corp Hgb Conc 33.9 g/dL (32-36); Mean Corpuscular Hgb 31.9 pg (27.0-32.0); Mean Corpuscular Volume 94.2 fL (80-94); Mean Platelet Vol. 10.7 fl (6.2-12.0); Monocyte# 0.93 X10^3/uL; Monocyte% 12.9 % (0-10); NRBC Flagged by Analyzer 0 % (0-5); Neutrophil # 3.77 X10^3/uL (2.7-7.7); Neutrophil % 52.3 % (47-70); Platelet Count 258 K/mm3 (150-450); RBC Distribution Width CV 13.7 % (11.6-14.6); RBC Distribution Width SD 47.5 fl (35.1-43.9); Red Blood Count 4.32 M/mm3 (4.6-6.2); White Blood Count 7.2 K/mm3 (4.4-11.0)
[2022-07-24] MEDS: predniSONE 20 MG Tablet 60 MG PO (20:08)
[2022-07-24 20:09] VITALS: PULSE 86; RESP 22; O2SAT 98
--- NOTE | 2022-07-24 20:10 | RAD_ITS ---
STUDY: X-RAY CHEST REASON FOR EXAM: Male, 46 years old. CHEST PAIN Is 1Productive cough and wheezing 0.5 weeks TECHNIQUE: XR Chest 2 Views COMPARISON: 12/09/2018 FINDINGS: There is no demonstrated pleural abnormality. Normal size heart. Normal mediastinum and natasha. Normal visualized pulmonary arteries. Normal visualized aortic arch and descending thoracic aorta. Normal visualized thoracic spine. Normal visualized ribs, clavicles, and shoulders. There is no demonstrated abnormality of the visualized soft tissue structures of the upper abdomen. RAD/Chest PA and Lateral IMPRESSION: There are no acute findings. Electronically Signed: Jacky Flores MD at 20:31 EDT ,
[2022-07-24 20:11] LABS: Anion Gap 5 (5-15); BUN 15 mg/dL (7-18); BUN/Creat Ratio 19.8 RATIO (10-20); Calcium,Total 9.3 mg/dL (8.5-10.1); Chloride 106 mmol/L (98-107); Creatinine, Serum 0.76 mg/dL (0.70-1.30); EST Glomerular Filtration Rate 117 mL/min (>60); Est Glom Filt Rate - Afr Amer 142 mL/min (>60); Estimated Creatinine Clearance 105.65 ml/min; Glucose 94 mg/dL (74-106); Potassium 3.5 mmol/L (3.5-5.1); Sodium Level 143 mmol/L (136-145)
--- NOTE | 2022-07-24 20:34 | EDS_ITS ---
HPI History of Present Illness Chief Complaint: Shortness of Breath Detail of Chief Complaint: Shortness of breath that has gotten worse over the past 24 hours. And whee Informant: patient and family (To help with the history since brother is very hard of hearing) Onset/Context/Timing Onset: Weeks (Onset of illness 1.5 weeks ago) Context: sudden Timing: Continuous Quality: Positive for Dyspnea on exertion and Wheezing; Negative for Orthopnea or PND Current Severity: Mild Maximum Severity: Moderate Worsened by: Exertion and Coughing Relieved by: Nothing Associated Symptoms cough, rhinorrhea, sore throat and other; Negative for post nasal drip, ear pain , fever, subjective, chills, sweats, clear sputum, white sputum, yellow sputum or green sputum Chest Pain: Positive for None Narrative Narrative: Patient is a 46-year-old male who is a smoker. He denies history of asthma or COPD. He presents with respiratory illness started 1.5 weeks ago. He does progressively gotten worse. He is coughing up brown-colored sputum. He denies fever, chills night sweats. He denies weight loss. He denies headache, visual, ocular auditory symptoms. He does endorse rhinorrhea, congestion and slight sore throat with coughing. He denies chest pain. He denies history of VTE. Denies leg pain or swelling. He denies GI symptoms. PE Risk Factors: Negative for Cancer, OCP + Smoking + > 35, Prior DVT or PE, Recent immobilization, Recent surgery or Recent travel Prior similar symptoms: No Recent Illness/Hospitalization: No PFSH PFSH Medical History Seizures Smoker Tobacco abuse Home Medications albuterol sulfate 90 mcg/actuation aerosol inhaler (ProAir HFA) 1 - 2 puff inhalation Q4H PRN PRN Sob &/Or Wheezing ##1 12/11/18 [Rx Last Taken Unknown] guaifenesin 1,200 mg tablet, extended release 12 hr (Mucus Relief ER) 1,200 mg PO BID ##30 12/11/18 [Rx Last Taken Unknown] albuterol sulfate 90 mcg/actuation aerosol inhaler (Ventolin HFA) 2 puff inhalation Q4H PRN PRN Wheezing ##1 07/24/22 [Rx Last Taken Unknown] prednisone 20 mg tablet 60 mg PO DAILY #15 TABLETS 07/24/22 [Rx Last Taken Unknown] Allergy/AdvReac Type Severity Reaction Status Date / Time No Known Allergies Allergy Verified 07/24/22 18:14 Family History Mother Cancer Father Myocardial infarction, Onset Age: 45 Heart disease Surgical History History of hernia repair Social History Smoking Status: Current every day smoker tobacco type: cigarettes Tobacco: How many years used: 30 alcohol intake: current alcohol intake frequency: holidays/special occasions only substance use type: does not use what type of physical activity do you participate in: none ROS ROS ED Constitutional Constitutional ED: Denies chills, fever(s), sweats or weight loss Eyes Eyes: Denies blurry vision, change in vision or diplopia ENT ENT ED: Reports rhinorrhea and sore throat; Denies ear pain Cardiovascular Cardiovascular: Denies chest pain, orthopnea, palpitations, paroxysmal nocturnal dyspnea or racing heartbeat Respiratory/Chest Respiratory/Chest: Reports cough, dyspnea and dyspnea on exertion; Denies orthopnea or paroxysmal nocturnal dyspnea Gastrointestinal Gastrointestinal: Denies abdominal pain, diarrhea, nausea or vomiting Genitourinary Genitourinary ED: Denies dysuria, hematuria or urinary frequency Musculoskeletal Musculoskeletal: Denies arthralgias, back pain, myalgias or neck pain Integumentary Denies Abrasions or rash Neurologic Neurologic: Denies headache(s), paresthesias or weakness Psychiatric Psychiatric: Denies anxiety or depression Endocrine Endocrinology: Denies cold intolerance or heat intolerance Hematologic/Lymphatic Hematologic/Lymphatic: Denies easy bleeding, easy bruising or lymphadenopathy Allergic/Immunologic Allergic/Immunologic ED: Denies mouth swelling, tongue swelling or urticaria EXAM Physical Exam Const Vital Signs: 07/24/22 18:13 07/24/22 19:52 07/24/22 19:52 Temperature 98.7 F Temperature Source Temporal Pulse Rate 100 Respiratory Rate 18 17 Respiratory Effort Respiratory Depth Respiratory Pattern Blood Pressure 136/99 H Blood Pressure Mean 111 Pulse Ox 97 98 98 Oxygen Delivery Method Room Air Room Air Room Air 07/24/22 19:52 07/24/22 19:55 07/24/22 20:09 Temperature Temperature Source Pulse Rate 73 86 Respiratory Rate 15 22 H Respiratory Effort Normal Respiratory Depth Normal Respiratory Pattern Normal Blood Pressure 134/81 H Blood Pressure Mean 98 Pulse Ox 98 98 Oxygen Delivery Method Room Air Room Air Room Air Positive well nourished, well developed and obese General Appearance ED: well developed and NAD; Negative for pallor Nutritional Appearance: obese HEENT Reports moist mucous membranes HEENT Narrative: Ears normal. Nares patent. Slight drainage. Posterior Prantal erythema or exudate. Uvula midline. No deviation tongue or protrusion. atraumatic; Negative for tenderness Eyes PERRL and EOMs intact bilaterally General Eye ED: Negative for pale conjunctiva or scleral icterus Neck no lymphadenopathy, supple, no meningeal signs and no JVD Resp normal respiratory effort and No clear to auscultation bilaterally Auscultation: wheezes expiratory wheezes (Right greater than left.) Cardio regular rate, regular rhythm, S1 normal heart sound, S2 normal heart sound and no murmurs GI non-tender, non-distended and no masses Auscultation: normoactive bowel sounds Back/Spine no CVA tenderness Extremity normal to inspection Neuro oriented x3, CN's II-XII intact bilaterally and no sensory deficits noted [place] Coma Scale: document GCS findings Spontaneous Obeys Commands Oriented 15 Psych mental status grossly normal Skin no wounds and skin turgor normal General Skin Exam: Negative for jaundice or pallor MDM MDM MDM Narrative Medical decision making narrative: With wheezing patient was treated with albuterol. Will obtain chest x-ray to assess for pneumonia. Differential is asthmatic bronchitis, purulent bronchitis with bronchospasm, pneumonia. Will obtain CBC to assess white count and H&H. Basic metabolic panel to assess renal function in the event that antibiotic doses need to be adjusted. Patient was informed of his results. Patient feels better after treatment. He was discharged prescription for albuterol and prednisone. Lab Data Attestation: I reviewed the patient's lab results. Lab results narrative: CBC and basic metabolic panel unremarkable. COVID test was positive Labs: Laboratory Results - last 24 hr 07/24/22 07/24/22 19:53 19:53 WBC 7.2 RBC 4.32 L Hgb 13.8 Hct 40.7 MCV 94.2 H MCH 31.9 MCHC 33.9 RDW Std Deviation 47.5 H RDW Coeff of Micah 13.7 Plt Count 258 MPV 10.7 Immature Gran % (Auto) 0.300 Neut % (Auto) 52.3 Lymph % (Auto) 33.1 [place] % (Auto) 12.9 H Eos % (Auto) 1.0 Baso % (Auto) 0.4 Absolute Neuts (auto) 3.8 Absolute Lymphs (auto) 2.38 Nucleated RBC % 0 Sodium 143 Potassium 3.5 Chloride 106 Carbon Dioxide 32.0 Anion Gap 5 BUN 15 Creatinine 0.76 Estim Creat Clear Calc 105.65 Est GFR (MDRD) Af Amer 142 Est GFR (MDRD) Non-Af 117 BUN/Creatinine Ratio 19.8 Glucose 94 Calcium 9.3 Radiography Chest X-Ray - ED: 2 View (2 view chest x-ray was independent reviewed interpreted by me as negative for any acute findings. There is minimal chronic changes. Cardiac silhouette and size unremarkable. Perihilar region unremarkable. Osseous trucks unremarkable.) Diagnostic Testing: Clinical Impression(s) from Imaging Studies Chest X-Ray 07/24/22 20:10 IMPRESSION: There are no acute findings. Electronically Signed: Jacky Flores MD at 20:31 EDT Reading Location ID and State: [facility] / [place] , Service support , Discharge Plan Triage Chief Complaint: Shortness of Breath ED Provider: Milad Coe Dx/Rx/DC Orders Clinical Impression: COVID-19 virus infection, Acute bronchitis, Acute bronchospasm, Tobacco use Instructions: Coronavirus Disease 2019 (COVID-19): Caring for Yourself or Others, ED Bronchospasm (Adult) Prescriptions: New prednisone 20 mg tablet 60 mg PO DAILY Qty: 15 0RF albuterol sulfate [Ventolin HFA] 90 mcg/actuation HFA aerosol inhaler 2 puff inhalation Q4H PRN PRN (Reason: Wheezing) Qty: 1 0RF No Action guaifenesin [Mucus Relief ER] 1,200 MG tablet 1,200 mg PO BID Qty: 30 0RF albuterol sulfate [ProAir HFA] 1 PUFF inhaler 1 - 2 puff inhalation Q4H PRN PRN (Reason: Sob &/Or Wheezing) Qty: 1 0RF Primary Care Provider: Bhavesh Chambers Referrals: Bhavesh Chambers MD [Primary Care Provider] - Disposition Disposition: Home, Self Care
[2022-07-24 20:55] VITALS: PULSE 84; RESP 18
[2022-07-24] MEDS: Albuterol 2.5 MG/3 ML VIAL.NEB. INHALATION ×3 (21:00)
--- NOTE | 2022-07-24 21:23 | CPS ---
Three Albuterol aerosol treatments were given in total.
== END 2022-07-24 21:30 | disposition home or self-care (01) ==
PROVIDERS: Emergency Provider Emergency Medicine; PCP Internal Medicine; Visit Provider Emergency Medicine
DX: U07.1 COVID-19 (principal); J20.9 Acute bronchitis, unspecified; F17.210 Nicotine dependence, cigarettes, uncomplicated; E66.9 Obesity, unspecified
CPT/HCPCS: 71046; 80048; 85025; 87811; 94640; 94760; 99283; A4216